=== PATIENT | female | born 1965 | race Two or more races ===

== ENCOUNTER → 2021-08-18 | Outpatient (CLI) | payer OTHER ==
--- NOTE | 2021-08-18 08:57 | RAD ---
EXAM: Abdomen sonogram. HISTORY: Elevated liver function laboratory values. TECHNIQUE: Sonographic imaging of the abdomen was performed. COMPARISON: None. FINDINGS: The liver is normal in size. There is hepatic steatosis. No focal hepatic lesion is seen. T he common bile duct is normal in caliber. The gallbladder is unremarkable. The kidneys and spleen are unremarkable. The pancreas is predominantly obscured due to bowel gas. The aorta is normal in calibe r. The inferior vena cava is patent. IMPRESSION: 1. Hepatic steatosis. 2. No acute sonographic finding. Electronically signed by: Saira Reina MD (08/18/2021 8:55 AM) [id number]
== END ==
LOC: US 07:55
PROVIDERS: ATTEND Family Medicine
DX: K76.0 Fatty (change of) liver, not elsewhere classified (principal); R79.89 Other specified abnormal findings of blood chemistry
CPT/HCPCS: 76700